=== PATIENT | male | born 1955 | race Caucasian/White ===

== ENCOUNTER 2023-07-09 15:15 | Emergency (ER) | payer MEDICARE, BC ==
[~2023-07-09] VITALS: Ht 180.3 cm; Wt 79.4 kg
[2023-07-09 16:06] VITALS: O2SAT 100
[2023-07-09] MEDS ORDERED: KETOROLAC TROMETHAMINE 60 MG INJ IM ONE ×2 (18:11→18:15)
[2023-07-09] MEDS ORDERED: PROCHLORPERAZINE MALEATE 5 MG TABLET ONE (18:11)
[2023-07-09] MEDS ORDERED: HYDROMORPHONE 1 MG/1 ML DISP.SYRIN ONE (18:11)
[2023-07-09] MEDS ORDERED: HYDROMORPHONE 2 MG/1 ML DISP.SYRIN ONE (18:12)
[2023-07-09] MEDS ORDERED: PROCHLORPERAZINE MALEATE 5 MG TABLET PO ONE (18:15)
[2023-07-09] MEDS ORDERED: HYDROMORPHONE 1 MG/1 ML DISP.SYRIN IM ONE (18:15)
[2023-07-09] MEDS ORDERED: HYDR-3980 PO (18:21)
[2023-07-09] MEDS ORDERED: FLAS1EAC2 TP (19:13)
[2023-07-09] MEDS ORDERED: FLAS1KIT2 TP (19:13)
== END 2023-07-09 19:27 | disposition home or self-care (01) ==
LOC: ER 15:31
DX: M54.40 Lumbago with sciatica, unspecified side (principal); Z79.899 Other long term (current) drug therapy
CPT/HCPCS: 99284; 96372 ×2; J1885; J1170 ×2; J8499; A4606; A4663